=== PATIENT | female | born 1960 ===

== ENCOUNTER → 2023-04-11 | Outpatient (CLI) | payer OTHER | END | disposition short-term general hospital (02) | LOC: EMS 10:55 | DX: S49.92XA Unspecified injury of left shoulder and upper arm, initial encounter (principal); S80.212A Abrasion, left knee, initial encounter; S60.512A Abrasion of left hand, initial encounter; S60.511A Abrasion of right hand, initial encounter; V18.4XXA Pedal cycle driver injured in noncollision transport accident in traffic accident, initial encounter; Y93.55 Activity, bike riding; Y92.414 Local residential or business street as the place of occurrence of the external cause | CPT/HCPCS: A0425; A0427 ==